=== PATIENT | male | born 1975 ===

== ENCOUNTER 2018-05-08 15:14 | Emergency (ER) | payer BC ==
[2018-05-08 18:30] LABS: Absolute Lymphocytes (CBC) 2.3 K/uL (0.7-4.9); Absolute Monocytes 0.6 K/uL (0.1-1.3); Absolute Neutrophil 4.2 K/uL (1.8-8.0); Basophils % 0.6 % (0-1.3); Eosinophils % 4.1 % (0-4.4); Hematocrit 46.8 % (39.6-49.0); Lymphocytes % 30.5 % (15.3-44.8); MPV 7.7 fL (7.6-11.3); Monocytes % 8.3 % (3.3-12.3); RBC Red Blood Cell Count 4.96 M/uL (4.33-5.43)
[2018-05-08 18:34] LABS: Protime INR 0.98
--- NOTE | 2018-05-08 18:42 | RAD REPORT ---
EXAM DESCRIPTION: Lucrecia Single View05/08/2018 6:31 pm CLINICAL HISTORY: Chest pain COMPARISON: none FINDINGS: The lungs appear clear of acute infiltrate. The heart is normal size IMPRESSION: No acute abnormalities displayed
[2018-05-08 18:54] LABS: ALT/SGPT 24 U/L (12-78); AST/SGOT 8 U/L (15-37); Albumin 3.7 g/dL (3.4-5.0); Alkaline Phosphatase 62 U/L (45-117); BUN Blood Urea Nitrogen 10 mg/dL (7-18); Bicarbonate 25 mmol/L (21-32); Bilirubin Direct < 0.1 mg/dL (0-0.2); Bilirubin Total 0.3 mg/dL (0.2-1.0); Glucose Level 95 mg/dL (74-106); Magnesium 2.2 mg/dL (1.8-2.4); Potassium 3.5 mmol/L (3.5-5.1); Protein, Total 7.6 g/dL (6.4-8.2); Sodium Level 140 mmol/L (136-145); Troponin (Emerg Dept Use Only) < 0.02 ng/mL (0.0-0.045)
[2018-05-08 18:56] LABS: NT PRO-BNP < 5 pg/mL (<125)
--- NOTE | 2018-05-08 21:11 | EDPHYS ---
Physician Documentation [facility] Name: Joel Madrigal Jr Age: 42 yrs Sex: Male : 1975 Arrival Date: 05/08/2018 Time: 15:20 Bed 19 Private MD: ED Physician Jai Osborne HPI: 05/08 21:23 This 42 yrs old Male presents to ER via Ambulatory with complaints of Chest Pain, kb Abdominal Pain. 21:23 The patient presents with abdominal pain that is diffuse. Onset: The symptoms/episode kb began/occurred yesterday. The symptoms do not radiate. Associated signs and symptoms: Pertinent positives: chest pain, diarrhea, headache, nausea. The symptoms are described as constant. Modifying factors: The symptoms are alleviated by nothing, the symptoms are aggravated by nothing. Severity of pain: At its worst the pain was mild moderate in the emergency department the pain is unchanged. The patient has not experienced similar symptoms in the past. The patient has not recently seen a physician. 21:23 Pt reports abd pain and chest pain that started last night. Today had diarrhea and kb nausea all day, now getting a headache. . Historical: - Allergies: 15:30 No Known Allergies; hb - Home Meds: 15:30 multivitamin oral oral [Active]; hb - PMHx: 15:30 None; hb - PSHx: 15:30 Appendectomy; hb - Immunization history:: Adult Immunizations up to date. - Social history:: Smoking status: Patient uses tobacco products, smokes one pack cigarettes per day. - Ebola Screening: : No symptoms or risks identified at this time. ROS: 21:22 Constitutional: Negative for fever, chills, and weight loss, ENT: Negative for injury, kb pain, and discharge, Neck: Negative for injury, pain, and swelling, Respiratory: Negative for shortness of breath, cough, wheezing, and pleuritic chest pain, Back: Negative for injury and pain, : Negative for injury, bleeding, discharge, and swelling, MS/Extremity: Negative for injury and deformity, Skin: Negative for injury, rash, and discoloration. 21:22 Cardiovascular: Positive for chest pain, Negative for edema, orthopnea, palpitations, paroxysmal nocturnal dyspnea. 21:22 Abdomen/GI: Positive for abdominal pain, nausea, diarrhea, Negative for vomiting, constipation, abdominal cramps, abdominal distension, anorexia. 21:22 Neuro: Positive for headache, Negative for altered mental status, dizziness, gait disturbance, hearing loss, loss of consciousness, numbness, seizure activity, speech changes, syncope, near syncope, tingling, tinnitus, tremor, visual changes, weakness. Exam: 21:23 Constitutional: This is a well developed, well nourished patient who is awake, alert, kb and in no acute distress. Head/Face: Normocephalic, atraumatic. ENT: Nares patent. No nasal discharge, no septal abnormalities noted. Tympanic membranes are normal and external auditory canals are clear. Oropharynx with no redness, swelling, or masses, exudates, or evidence of obstruction, uvula midline. Mucous membranes moist. Neck: Trachea midline, no thyromegaly or masses palpated, and no cervical lymphadenopathy. Supple, full range of motion without nuchal rigidity, or vertebral point tenderness. No Meningismus. Chest/axilla: Normal chest wall appearance and motion. Nontender with no deformity. No lesions are appreciated. Cardiovascular: Regular rate and rhythm with a normal S1 and S2. No gallops, murmurs, or rubs. Normal PMI, no JVD. No pulse deficits. Respiratory: Lungs have equal breath sounds bilaterally, clear to auscultation and percussion. No rales, rhonchi or wheezes noted. No increased work of breathing, no retractions or nasal flaring. Abdomen/GI: Soft, non-tender, with normal bowel sounds. No distension or tympany. No guarding or rebound. No evidence of tenderness throughout. Skin: Warm, dry with normal turgor. Normal color with no rashes, no lesions, and no evidence of cellulitis. MS/ Extremity: Pulses equal, no cyanosis. Neurovascular intact. Full, normal range of motion. Neuro: Awake and alert, GCS 15, oriented to person, place, time, and situation. Cranial nerves II-XII grossly intact. Motor strength 5/5 in all extremities. Sensory grossly intact. Cerebellar exam normal. Normal gait. Vital Signs: 15:29 BP 114 / 93; Pulse 71; Resp 16; Temp 98.1; Pulse Ox 100% on R/A; Pain 8/10; hb 17:50 BP 125 / 89; Pulse 61; Resp 17; Pulse Ox 99% on R/A; tw2 18:19 BP 127 / 92; Pulse 71; Resp 17; Pulse Ox 99% on R/A; tw2 19:00 BP 125 / 93; Pulse 71; Resp 16; Pulse Ox 98% on R/A; jb4 20:00 BP 126 / 97; Pulse 66; Resp 18; Pulse Ox 99% on R/A; jb4 21:30 BP 125 / 93; Pulse 82; Resp 16; Pulse Ox 98% on R/A; jb4 MDM: 17:54 Patient medically screened. kb 21:10 Data reviewed: vital signs, nurses notes. Data interpreted: Pulse oximetry: on room air kb is 99 %. Interpretation: normal. Counseling: I had a detailed discussion with the patient and/or guardian regarding: the historical points, exam findings, and any diagnostic results supporting the discharge/admit diagnosis, lab results, the need for outpatient follow up, a family practitioner, to return to the emergency department if symptoms worsen or persist or if there are any questions or concerns that arise at home. 05/08 18:03 Order name: Basic Metabolic Panel; Complete Time: 19:02 kb 05/08 18:03 Order name: CBC with Diff; Complete Time: 18:41 kb 05/08 18:03 Order name: LFT's; Complete Time: 19:02 kb 05/08 18:03 Order name: Magnesium; Complete Time: 19:02 kb 05/08 18:03 Order name: NT PRO-BNP; Complete Time: 19:02 kb 05/08 18:03 Order name: PT-INR; Complete Time: 18:50 kb 05/08 17:51 Order name: EKG Electrocardiogram EDOH 05/08 18:03 Order name: Troponin (emerg Dept Use Only); Complete Time: 19:02 kb 05/08 18:03 Order name: XRAY Chest (1 view); Complete Time: 18:44 kb 05/08 18:03 Order name: EKG; Complete Time: 18:04 kb 05/08 18:03 Order name: Cardiac monitoring; Complete Time: 18:08 kb 05/08 18:03 Order name: EKG - Nurse/Tech; Complete Time: 18:08 kb 05/08 20:08 Order name: Troponin (emerg Dept Use Only); Complete Time: 21:10 kb 05/08 20:08 Order name: EKG; Complete Time: 20:09 kb 05/08 18:03 Order name: IV Saline Lock; Complete Time: 18:18 kb 05/08 18:03 Order name: Labs collected and sent; Complete Time: 18:18 kb 05/08 18:03 Order name: O2 Per Protocol; Complete Time: 18:08 kb 05/08 18:03 Order name: O2 Sat Monitoring; Complete Time: 18:08 kb 05/08 20:08 Order name: EKG - Nurse/Tech; Complete Time: 21:02 kb Administered Medications: No medications were administered Disposition: 05/09 12:38 Co-signature as Attending Physician, Jai Osborne MD. rn Disposition: 05/08/18 21:11 Discharged to Home. Impression: Chest pain, unspecified, Generalized abdominal pain, Diarrhea, unspecified. - Condition is Stable. - Discharge Instructions: Food Choices to Help Relieve Diarrhea, Adult, Abdominal Pain, Adult, [id number], Nonspecific Chest Pain, [id number], Diarrhea, Adult, [id number]. - Prescriptions for Bentyl 20 mg Oral Tablet - take 1 tablet by ORAL route every 6 hours As needed; 20 tablet. Zofran 4 mg Oral Tablet - take 1 tablet by ORAL route every 6 hours As needed; 20 tablet. - Medication Reconciliation Form, Thank You Letter, Antibiotic Education, Prescription Opioid Use, Work release form, Family Work Release form. - Follow up: Emergency Department; When: As needed; Reason: Worsening of condition. Follow up: Private Physician; When: 2 - 3 days; Reason: Recheck today's complaints, Continuance of care, Re-evaluation by your physician. Signatures: Dispatcher [employer] EDOH Katalina Blair, UTILITY SPRAY OPERATOR-C UTILITY SPRAY OPERATOR-Ckb Jai Osborne MD MD rn Baxter, Heather, RN RN hb Bryson, James, RN RN jb4 Corrections: (The following items were deleted from the chart) 05/08 22:04 21:11 05/08/2018 21:11 Discharged to Home. Impression: Chest pain, unspecified; jb4 Generalized abdominal pain; Diarrhea, unspecified. Condition is Stable. Forms are Medication Reconciliation Form, Thank You Letter, Antibiotic Education, Prescription Opioid Use. Follow up: Emergency Department; When: As needed; Reason: Worsening of condition. Follow up: Private Physician; When: 2 - 3 days; Reason: Recheck today's complaints, Continuance of care, Re-evaluation by your physician. kb
--- NOTE | 2018-05-08 21:11 | ER ---
Nurse's Notes [facility] Name: Joel Madrigal Jr Age: 42 yrs Sex: Male : 1975 Arrival Date: 05/08/2018 Time: 15:20 Bed 19 Private MD: Diagnosis: Chest pain, unspecified;Generalized abdominal pain;Diarrhea, unspecified Presentation: 05/08 15:28 Presenting complaint: Sharp left sided chest pain while driving last night at approx hb 8pm. Pain radiates to left arm. Pt also reports N/D and diffuse abdominal pain since this morning. Transition of care: patient was not received from another setting of care. Onset of symptoms was May 07, 2018. Risk Assessment: Do you want to hurt yourself or someone else? Patient reports no desire to harm self or others. Care prior to arrival: None. 15:28 Method Of Arrival: Ambulatory hb 15:28 Acuity: RAO 3 hb 18:23 Initial Sepsis Screen: Does the patient meet any 2 criteria? No. Patient's initial tw2 sepsis screen is negative. Does the patient have a suspected source of infection? No. Patient's initial sepsis screen is negative. Historical: - Allergies: 15:30 No Known Allergies; hb - Home Meds: 15:30 multivitamin oral oral [Active]; hb - PMHx: 15:30 None; hb - PSHx: 15:30 Appendectomy; hb - Immunization history:: Adult Immunizations up to date. - Social history:: Smoking status: Patient uses tobacco products, smokes one pack cigarettes per day. - Ebola Screening: : No symptoms or risks identified at this time. Screenin:20 Abuse screen: Denies threats or abuse. Nutritional screening: No deficits noted. tw2 Tuberculosis screening: No symptoms or risk factors identified. Fall Risk None identified. Assessment: 18:20 General: Appears in no apparent distress. Behavior is calm, cooperative, appropriate tw2 for age. Pain: Complains of pain in chest Pain radiates to left arm Pain began. Neuro: Level of Consciousness is awake, alert, obeys commands, Oriented to person, place, time, situation. Neuro: Reports tingling in his left arm and a headache and neck tension. Cardiovascular: Reports chest pain, Heart tones S1 S2 Patient's skin is warm and dry. Respiratory: Airway is patent Respiratory effort is even, unlabored, Respiratory pattern is regular, symmetrical, Breath sounds are clear bilaterally. GI: No signs and/or symptoms were reported involving the gastrointestinal system. : No signs and/or symptoms were reported regarding the genitourinary system. EENT: No signs and/or symptoms were reported regarding the EENT system. Derm: No signs and/or symptoms reported regarding the dermatologic system. Musculoskeletal: No signs and/or symptoms reported regarding the musculoskeletal system. Range of motion: intact in all extremities. 19:20 Reassessment: Patient appears in no apparent distress at this time. Patient and/or jb4 family updated on plan of care and expected duration. Pain level reassessed. Patient is alert, oriented x 3, equal unlabored respirations, skin warm/dry/pink. Patient states feeling better. 20:20 Reassessment: Patient appears in no apparent distress at this time. Patient and/or jb4 family updated on plan of care and expected duration. Pain level reassessed. Patient is alert, oriented x 3, equal unlabored respirations, skin warm/dry/pink. 21:20 Reassessment: Patient appears in no apparent distress at this time. Patient and/or jb4 family updated on plan of care and expected duration. Pain level reassessed. Patient is alert, oriented x 3, equal unlabored respirations, skin warm/dry/pink. 22:02 Reassessment: Patient appears in no apparent distress at this time. Patient and/or jb4 family updated on plan of care and expected duration. Pain level reassessed. Patient is alert, oriented x 3, equal unlabored respirations, skin warm/dry/pink. Vital Signs: 15:29 BP 114 / 93; Pulse 71; Resp 16; Temp 98.1; Pulse Ox 100% on R/A; Pain 8/10; hb 17:50 BP 125 / 89; Pulse 61; Resp 17; Pulse Ox 99% on R/A; tw2 18:19 BP 127 / 92; Pulse 71; Resp 17; Pulse Ox 99% on R/A; tw2 19:00 BP 125 / 93; Pulse 71; Resp 16; Pulse Ox 98% on R/A; jb4 20:00 BP 126 / 97; Pulse 66; Resp 18; Pulse Ox 99% on R/A; jb4 21:30 BP 125 / 93; Pulse 82; Resp 16; Pulse Ox 98% on R/A; jb4 ED Course: 15:20 Patient arrived in ED. tw3 15:29 Triage completed. hb 15:30 Arm band placed on. hb 15:30 EKG completed in triage. Results shown to MD. hb 15:30 EKG done, by wireless technician. reviewed by aJi Osborne MD. sm3 17:50 Placed in gown. Bed in low position. Adult w/ patient. surveillance monitor on. Pulse ox on. tw2 NIBP on. 17:54 Katalina Blair FNP-C is PHCP. kb 17:54 Jai Osborne MD is Attending Physician. kb 17:55 Cristiane Olivo, RN is Primary Nurse. tw2 18:19 Inserted saline lock: 22 gauge in right forearm, using aseptic technique. Blood tw2 collected. Patient maintains SpO2 saturation greater than 95% on room air. 18:31 XRAY Chest (1 view) In Process Unspecified. EDMS 19:02 Report given to VINAYAK Raymundo. tw2 19:04 Primary Nurse role handed off by Cristiane Olivo RN tw2 20:41 Delroy Shi, RN is Primary Nurse. jb4 22:04 No provider procedures requiring assistance completed. IV discontinued, intact, jb4 bleeding controlled. Administered Medications: No medications were administered Outcome: 21:11 Discharge ordered by . kb 22:04 Discharged to home ambulatory, with significant other. jb4 22:04 Condition: stable 22:04 Discharge instructions given to patient, significant other, Instructed on discharge instructions, follow up and referral plans. medication usage, Demonstrated understanding of instructions, follow-up care, medications, Prescriptions given X 2. 22:04 Patient left the ED. jb4 Signatures: Dispatcher [employer] EDSC Katalina Blair FNP-C FNP-Aileen Melendez RN RN Cristiane Olivo RN RN tw2 Delroy Shi, VINAYAK RN jb4 Era Velazquez tw3 Yessenia Kurtz 3
--- NOTE | 2018-05-09 07:39 | EKG ---
Test Date: 2018-05-08 Test Time: 20:26:27 Field Service Manager: JEANETTE MEASUREMENT RESULTS: Intervals: Rate: 59 LA: 156 QRSD: 100 QT: 412 QTc: 407 Zebulon: P: 63 LA: 156 QRS: 34 T: 37 INTERPRETIVE STATEMENTS: Sinus bradycardia Otherwise normal ECG Compared to ECG 04/07/2018 15:31:02 Sinus rhythm no longer present Electronically Signed On 05-09-18 07:28:00 CADMIUM BURNER by Jasper Bolton
--- NOTE | 2018-05-09 07:40 | EKG ---
Test Date: 2018-04-07 Test Time: 15:31:02 Scaffolding Helper: MICHELLE MEASUREMENT RESULTS: Intervals: Rate: 66 VT: 146 QRSD: 72 QT: 364 QTc: 381 [place]ugh: P: 44 VT: 146 QRS: 16 T: 21 INTERPRETIVE STATEMENTS: Normal sinus rhythm Normal ECG No previous ECG available for comparison Electronically Signed On 05-09-18 07:30:30 SCHOOL LUNCH MANAGER by Jasper Bolton
== END 2018-05-08 22:04 | disposition home or self-care (01) ==
LOC: ER 15:14
DX: R07.9 Chest pain, unspecified (principal); R10.84 Generalized abdominal pain; R19.7 Diarrhea, unspecified; F17.210 Nicotine dependence, cigarettes, uncomplicated
CPT/HCPCS: 36415; 71045; 80048; 80076; 83735; 83880; 84484; 85025; 85610; 93005; 99285